=== PATIENT | female | born 1985 | race Caucasian/White ===

== ENCOUNTER → 2018-12-06 | Emergency (ER) | payer SELFPAY ==
[~2018-12-06] VITALS: Ht 170.2 cm; Wt 104.5 kg
[~2018-12-06] MED LIST: AZIT250T PO; LORAZEPAM 1 MG TAB PO ONE
[2018-12-06 16:01] VITALS: Ht 170.2 cm; Wt 104.5 kg
--- NOTE | 2018-12-06 16:31 | ERD ---
ER Documentation Chief Complaint Chief Complaint BIBA 39 from MD office post seizure, pt is back to baseline at this time. HPI This is a 33-year-old female who has a history of Down syndrome with severe seizure disorder on multiple medications. She is here with mom for seizure. Child at baseline has about 3 seizures a week, that are breakthrough. The patient's mom was being seen by her physician in the office prior to arrival and the child was in the waiting room where she had a seizure that was witnessed that was general tonic-clonic for 1 minute with a postictal state. The staff there called the paramedics to fiber picker the patient. However, mom states that she would not of called the paramedics because this happens all the time and usually just waited out and she is just fine. She said it was too late to cancel the paramedics at that time. She says her child is now at baseline mental status. She says that she has had a slight cough and runny nose over the past couple days but no fever no shortness of breath ROS All systems reviewed and are negative except as per history of present illness. Medications Home Meds Active Scripts Azithromycin* (Zithromax*) 250 Mg Tablet, 250 MG PO .ZPACK DIRECTED, #6 TAB TAKE 500 MG (2 TABS) THE FIRST DAY THEN 250 MG (1 TAB) DAYS 2-5 Prov:KEVIN MARIE DO 12/06/18 PMhx/Soc History of Surgery: No Anesthesia Reaction: No Hx Neurological Disorder: Yes (down's syndrome, seizure disorders) Hx Respiratory Disorders: No Hx Cardiac Disorders: No Hx Psychiatric Problems: Yes (shizophrenia) Hx Alcohol Use: No Hx Substance Use: No Hx Tobacco Use: No Smoking Status: Never smoker FmHx Family History: No coronary disease Physical Exam Vitals Vital Signs Date Temp Pulse Resp B/P (MAP) Pulse Ox O2 O2 Flow FiO2 Time Delivery Rate 12/06/18 98.9 71 22 140/68 97 16:01 (92) Physical Exam Const: Well-developed, well-nourished Head: Atraumatic, normocephalic Eyes: Normal Conjunctiva, PERRLA, EOMI, normal sclera, no nystagmus ENT: Normal External Ears, Nose and Mouth, moist mucus membranes. Neck: Full range of motion. No meningismus, no lymphadenopathy. Resp: Clear to auscultation bilaterally, no wheezing, rhonchi, rales Cardio: Regular rate and rhythm, no murmurs, S1 S2 present Abd: Soft, non tender x 4, non distended. Normal bowel sounds, no guar ding or rebound, no pulsitile abdominal masses or bruits Skin: No petechiae or rashes, no ecchymosis , no maculopapular rash Back: No midline or flank tenderness Ext: No cyanosis, or edema, FROM x 4, normal inspection, neurovascularly intact x 4 Neur: Awake and alert, STR 5/5 x 4, sensation intact x 4, no focal findings, cerebellum intact Psych: Normal Mood and Affect Results 24 hrs Current Medications Medications Dose Sig/Ramesh Start Time Status Last (Trade) Ordered Route PRN Stop Time Admin Dose Reason Admin Lorazepam 1 mg ONCE ONCE 12/06/18 DC 12/06/18 (Ativan) PO 16:00 16:13 12/06/18 16:01 Procedures/MDM Patient is clinically back at baseline and had a breakthrough seizure that is typical. She is well-appearing and mom would not usually have called EMS that she been around. We will cover with a Z-Patrick for her URI symptoms/bronchitis Departure Diagnosis: Primary Impression: URI (upper respiratory infection) URI type: unspecified viral URI Qualified Codes: J06.9 - Acute upper respiratory infection, unspecified Additional Impression: Seizure disorder Condition: Stable Patient Instructions: Preventing Common Respiratory Infections, Seizure, Recurrent [Child] KEVIN MARIE DO Dec 06, 2018 16:31
[2018-12-06 17:19] VITALS: BP 135/65; PULSE 89; RESP 20
== END | disposition home or self-care (01) ==
LOC: E/R 15:44
DX: J06.9 Acute upper respiratory infection, unspecified (principal); G40.909 Epilepsy, unspecified, not intractable, without status epilepticus
CPT/HCPCS: 99283